=== PATIENT | female | born 1980 | race Hispanic/Latino ===

== ENCOUNTER 2016-04-16 06:46 | Outpatient (CLI) | payer MEDICAID ==
[~2016-04-16] VITALS: Ht 165.1 cm; Wt 158.8 kg
[~2016-04-16 06:46] MED LIST: ACET1TAB43 PO; ALBU8.5H4 IH; ALPR1T PO; BSP10T PO; CETI10TA17 PO; CYCL10TA9 PO; DESV100T PO; DESV50TA PO; DICY20TA57 PO; DOXY100C2 PO; GABA-488 PO; GLYB2.5T4 PO; HYDR1TAB PO; LURA80TA3 PO; MELO15TA14 PO; METF1000 PO; METF500T4 PO; NAPR500T PO; NYST1000 PO; OXYC-12 PO; POLY17PO23 PO; PRAV20TA3 PO; PRD20T PO; PRM25T PO; TRM50T PO; TRZ100T PO; VARE1TAB17 PO; VARE1TAB22 PO
--- OUTSIDE RECORDS SUMMARY | 2016-04-16 06:50 | XMS REPORT | Continuity of Care Document ---
Author Author [facility] Organization [facility] Address Unknown Phone Unavailable Care Team Providers Care Ash Conveyor Operator Name Role Phone No Pcp, Na PCP Unavailable Source Comments Some departments are not documenting in the electronic medical record. If you do not see the information that you expected, contact Release of Information in the Health Information Management department at [phone] for further assistance in locating additional records.[facility] Active Allergies and Adverse Reactions No Known Allergies Current Medications Not on file Active Problems Not on file Social History Tobacco Use Types Packs/Day Years Used Date Current Every Day Smoker Cigarettes 1 Alcohol Use Drinks/Week oz/Week Comments No Last Filed Vital Signs Vital Sign Reading Time Taken Blood Pressure 124/60 06/14/2014 6:30 AM [facility] Pulse 94 06/14/2014 3:37 AM [facility] Temperature 36.3 C (97.3 F) 06/14/2014 3:37 AM [facility] Respiratory Rate - - Height 1.651 m (5' 5") 06/14/2014 3:37 AM [facility] Weight 151.501 kg (334 lb) 06/14/2014 3:37 AM [facility] Body Mass Index 55.58 06/14/2014 3:37 AM [facility] Oxygen Saturation 98% 06/14/2014 6:30 AM [facility] Plan of Care Health Maintenance Due Date Last Done Comments Physical (Comprehensive) 1989 Exam Pertussis Vaccine 1993 Tetanus Vaccine 08/29/1999 Cervical Cancer Screening 08/29/2003 Influenza Vaccine 12/11/2015 Results from Last 3 Months Not on file
[2016-04-16] MEDS ORDERED: BUPIVACAINE 0.25% 30 ML (SENSORCAINE) VIAL ONE (07:00)
[2016-04-16] MEDS ORDERED: TRIAMCINOLONE ACET (KENALOG-40) 40 MG/ML 1 ML VIAL ONE (07:00)
[2016-04-16 07:16] VITALS: BP 121/83
[2016-04-16 08:02] VITALS: BP 139/104
--- NOTE | 2016-04-16 13:23 | Pain Medicine-Procedure ---
Procedure Pre-Op/Post-Op Diagnosis Diagnosis: disc disorder with radiculopathy, lumbar Indications for Operation Low back pain Attending Surgeon Jenna Procedure Date of Service: Apr 16, 2016 Procedure: Lumbar Epidural Steroid Injection at the L3-L4 level under Fluoroscopic Guidance Procedure: Patient was identified in the holding area. After risks, benefits, and alternatives were discussed with the patient, informed consent was obtained. Patient was brought to the fluoroscopy suite and placed prone on the procedure room table. A time out was performed. Vital signs were monitored throughout the procedure. The patients low back was prepped and draped in the usual sterile fashion. The patients skin was anesthetized using 2% Lidocaine. A Tuohy needle was inserted and advanced to the L3-L4 epidural space under fluoroscopic guidance using the loss of resistance technique and intermittent projection of fluoroscopy. There was no paresthesia with needle placement. The needle position was confirmed in both the AP and lateral view. After negative aspiration 2ml of contrast was injected under live fluoroscopy which showed good spread of the contrast in the epidural space at the appropriate level, there was no intravascular or subarachnoid spread. Again, after negative aspiration for heme or CSF, 2 ml of 0.25% Bupivicaine, 2ml of preservative free normal saline, and 80mg of Kenalog was injected. The needle was removed and a sterile bandage was placed and the patient was transferred to the recovery area in stable condition. After a brief period of observation, patient was discharged to home with no new neurological deficits and no apparent complications. Complications None CAMILLA BOO MD Apr 16, 2016 1:23 pm
== END 2016-04-16 08:05 | disposition home or self-care (01) ==
LOC: CARD 06:46
PROVIDERS: ATTEND Pain Medicine Pain Medicine
DX: M51.16 Intervertebral disc disorders with radiculopathy, lumbar region (principal); E66.01 Morbid (severe) obesity due to excess calories; Z68.43 Body mass index [BMI] 50.0-59.9, adult; M47.816 Spondylosis without myelopathy or radiculopathy, lumbar region
CPT/HCPCS: 62323

== ENCOUNTER 2016-04-30 06:51 | Outpatient (CLI) | payer MEDICAID ==
[~2016-04-30] VITALS: Ht 165.1 cm; Wt 161.5 kg
[2016-04-30] MEDS ORDERED: BUPIVACAINE 0.25% 30 ML (SENSORCAINE) VIAL ONE (06:53)
[2016-04-30] MEDS ORDERED: TRIAMCINOLONE ACET (KENALOG-40) 40 MG/ML 1 ML VIAL ONE (06:53)
[2016-04-30] MEDS ORDERED: LIDOCAINE 1% INJ 20 ML (XYLOCAINE) VIAL ONE (06:53)
--- OUTSIDE RECORDS SUMMARY | 2016-04-30 06:54 | XMS REPORT | Continuity of Care Document ---
Author Author [facility] Organization [facility] Address Unknown Phone Unavailable Care Team Providers Care Seafood Specialist Name Role Phone No Pcp, Na PCP Unavailable Source Comments Some departments are not documenting in the electronic medical record. If you do not see the information that you expected, contact Release of Information in the Health Information Management department at [phone] for further assistance in locating additional records.[facility] Active Allergies and Adverse Reactions No Known Allergies Current Medications Not on file Active Problems Not on file Social History Tobacco Use Types Packs/Day Years Used Date Current Every Day Smoker Cigarettes 1 Alcohol Use Drinks/Week oz/Week Comments No Last Filed Vital Signs Vital Sign Reading Time Taken Blood Pressure 124/60 06/14/2014 6:30 AM [facility] Pulse 94 06/14/2014 3:37 AM [facility] Temperature 36.3 C (97.3 F) 06/14/2014 3:37 AM [facility] Respiratory Rate - - Height 1.651 m (5' 5") 06/14/2014 3:37 AM [facility] Weight 151.501 kg (334 lb) 06/14/2014 3:37 AM [facility] Body Mass Index 55.58 06/14/2014 3:37 AM [facility] Oxygen Saturation 98% 06/14/2014 6:30 AM [facility] Plan of Care Health Maintenance Due Date Last Done Comments Physical (Comprehensive) 1989 Exam Pertussis Vaccine 1993 Tetanus Vaccine 08/29/1999 Cervical Cancer Screening 08/29/2003 Influenza Vaccine 12/11/2015 Results from Last 3 Months Not on file
[2016-04-30 07:10] VITALS: BP 139/106
[2016-04-30 07:34] VITALS: BP 158/101
--- NOTE | 2016-04-30 14:08 | Pain Medicine-Procedure ---
Procedure Pre-Op/Post-Op Diagnosis Diagnosis: sacrococcygeal disorder Indications for Operation Hip pain Attending Surgeon Jenna Procedure Date of Service: Apr 30, 2016 Procedure: Flouroscopic guided right sacroiliac joint injection PROCEDURE IN DETAIL: After obtaining informed consent from the patient, the patient's chart was reviewed. The patient was then brought to the procedure room and placed in the prone position. A time out was performed. The back was prepped with antiseptic solution and under fluoroscopic guidance the patient's sacroiliac joint on the right side was identified. Right sacroiliac joint was identified with fluoroscopic guidance and 2 mL's of 1% lidocaine was used to anesthestize the skin and then one 22-gauge 3.5 inch spinal needle was inserted and advance under flouroscopic guidance until it was in the posterior inferior 1 /3 of the sacroiliac joint on the right side. After negative aspiration, needle was injected with 80 mg of Kenalog along with 2 mL's of 0.25% marcaine. Needle was then flushed with 1% lidocaine and then removed. Band-Aids were applied to all the sites and the patient tolerated the procedure well and was taken to the recovery area in stable condition. Complications None CAMILLA BOO MD Apr 30, 2016 2:08 pm
== END 2016-04-30 07:36 | disposition home or self-care (01) ==
LOC: CARD 06:51
PROVIDERS: ATTEND Pain Medicine Pain Medicine
DX: M53.3 Sacrococcygeal disorders, not elsewhere classified (principal); M51.16 Intervertebral disc disorders with radiculopathy, lumbar region; Z79.899 Other long term (current) drug therapy
CPT/HCPCS: 27096

== ENCOUNTER 2016-08-09 13:01 | Outpatient (CLI) | payer MEDICAID, OTHER ==
[~2016-08-09] VITALS: Ht 165.1 cm; Wt 158.8 kg
[2016-08-09] MEDS ORDERED: LIDOCAINE 1% INJ 20 ML (XYLOCAINE) VIAL ONE (13:04)
[2016-08-09] MEDS ORDERED: TRIAMCINOLONE ACET (KENALOG-40) 40 MG/ML 1 ML VIAL ONE (13:04)
[2016-08-09] MEDS ORDERED: BUPIVACAINE 0.25% 30 ML (SENSORCAINE) VIAL ONE (13:04)
[2016-08-09 13:15] VITALS: BP 130/106
[2016-08-09 13:33] VITALS: BP 139/99
--- NOTE | 2016-08-09 14:29 | Pain Medicine-Procedure ---
Procedure Pre-Op/Post-Op Diagnosis Diagnosis: sacrococcygeal disorder Indications for Operation Hip pain Attending Surgeon Jenna Procedure Date of Service: August 09, 2016 Procedure: Flouroscopic guided right sacroiliac joint injection PROCEDURE IN DETAIL: After obtaining informed consent from the patient, the patient's chart was reviewed. The patient was then brought to the procedure room and placed in the prone position. A time out was performed. The back was prepped with antiseptic solution and under fluoroscopic guidance the patient's sacroiliac joint on the right side was identified. Right sacroiliac joint was identified with fluoroscopic guidance and 2 mL's of 1% lidocaine was used to anesthestize the skin and then one 22-gauge 3.5 inch spinal needle was inserted and advance under flouroscopic guidance until it was in the posterior inferior 1 /3 of the sacroiliac joint on the right side. After negative aspiration, needle was injected with 80 mg of Kenalog along with 2 mL's of 0.25% marcaine. Needle was then flushed with 1% lidocaine and then removed. Band-Aids were applied to all the sites and the patient tolerated the procedure well and was taken to the recovery area in stable condition. Complications None CAMILLA BOO MD August 09, 2016 2:29 pm
== END 2016-08-09 13:36 | disposition home or self-care (01) ==
LOC: CARD 13:01
PROVIDERS: ATTEND Pain Medicine Pain Medicine
DX: M53.3 Sacrococcygeal disorders, not elsewhere classified (principal); M47.816 Spondylosis without myelopathy or radiculopathy, lumbar region; Z79.899 Other long term (current) drug therapy
CPT/HCPCS: 27096

== ENCOUNTER → 2017-08-18 | Outpatient (CLI) | payer OTHER ==
[~2017-08-18] MED LIST changes: -METF1000 PO; +METF10002 PO; -METF500T4 PO; +METF500T5 PO; +NAPR-1071 PO; -NAPR500T PO
--- NOTE | 2017-08-18 13:56 | Diagnostic Imaging Report ---
INDICATION: Left knee pain. FINDINGS: Three views of the left knee show no fracture, dislocation, or other acute abnormalities. IMPRESSION: Negative left knee. Dictated by: Dictated on workstation # [id number]
--- NOTE | 2017-08-18 13:58 | Diagnostic Imaging Report ---
INDICATION: Back pain. Lumbar spine. FINDINGS: AP and lateral views of the lumbar spine show normal vertebral body height and alignment. Disc spaces are well maintained. IMPRESSION: Negative lumbar spine. Dictated by: Dictated on workstation # [id number]
== END ==
LOC: RAD 11:55
PROVIDERS: ATTEND Family Medicine
DX: M25.562 Pain in left knee (principal); M54.5 Low back pain; W19.XXXA Unspecified fall, initial encounter
CPT/HCPCS: 72100; 73562

== ENCOUNTER → 2017-08-25 | Outpatient (CLI) | payer OTHER ==
--- NOTE | 2017-08-25 14:17 | Diagnostic Imaging Report ---
PROCEDURE: MRI lumbar spine. TECHNIQUE: Multiplanar, multisequence MRI of the lumbar spine was performed without contrast. INDICATION: Chronic low back pain progressing in severity. Patient also complains of bilateral leg numbness for two weeks. COMPARISON: No prior studies are available for comparison. FINDINGS: Curvature and alignment of the lumbar spine is normal. The vertebral body heights and marrow signal intensity are normal. No geographic marrow lesion is seen. No acute compression fracture is identified. There is mild disc desiccation noted at L3-L4 and L5-S1 levels compatible with degenerative disc disease. The conus is unremarkable at the L1 level. T12-L1: No central canal or neuroforaminal stenosis is identified. L1-L2: Unremarkable. L2-L3: Unremarkable. L3-L4: There is a wide-based midline disc bulge indenting the ventral thecal sac. There is mild narrowing of the central canal with AP dimension of 8 mm. No significant lateral recess or neuroforaminal stenosis is seen. L4-L5: There is asymmetric wide-based disc/osteophyte complex to the right resulting in [id number] neuroforaminal narrowing. The central canal and left neural foramen is patent. L5-S1: There is a wide-based midline/left paramidline disc bulge, however, no significant central canal or neuroforaminal stenosis is detected. The paraspinous tissues are unremarkable. IMPRESSION: Lumbar spondylosis, as described. There is a wide-based midline disc bulge at L3-L4 level resulting in mild central canal narrowing. No other significant abnormality is seen apart from mild right neuroforaminal narrowing at L4-L5. No acute compression fracture is detected. Dictated by: Dictated on workstation # [id number]
== END ==
LOC: RAD 12:38
PROVIDERS: ATTEND Family Medicine
DX: M48.061 Spinal stenosis, lumbar region without neurogenic claudication (principal); M47.26 Other spondylosis with radiculopathy, lumbar region; M51.17 Intervertebral disc disorders with radiculopathy, lumbosacral region; M99.73 Connective tissue and disc stenosis of intervertebral foramina of lumbar region
CPT/HCPCS: 72148